=== PATIENT | male | born 1955 | race Caucasian/White ===

== ENCOUNTER → 2017-03-10 | Outpatient (REF) ==
[~2017-03-10] MED LIST: FLAGYL500 MG PO; LEVAQUIN 750MG750 M1 PO; NO HOME MEDICATIONS; PERCOCET 325 MG1 TA2 PO; PREDNISONE20 MG PO; ZOFRAN ODT4 MG PO
== END ==
LOC: WSOH 15:28
DX: Z23 Encounter for immunization (principal)

== ENCOUNTER → 2017-03-17 | Outpatient (REF) | LOC: WSOH 16:22 | DX: Z02.89 Encounter for other administrative examinations (principal) ==

== ENCOUNTER → 2017-05-04 | Outpatient (REF) | LOC: WSOH 16:13 | DX: Z02.89 Encounter for other administrative examinations (principal) ==

== ENCOUNTER → 2020-10-02 | Outpatient (CLI) | payer OTHER | LOC: COL.RAD | DX: M17.12 Unilateral primary osteoarthritis, left knee (principal); M94.262 Chondromalacia, left knee; Z98.890 Other specified postprocedural states ==